=== PATIENT | male | born 1985 | race Caucasian/White ===

== ENCOUNTER 2021-05-31 01:54 | Emergency (ER) | payer SELFPAY ==
[~2021-05-31] VITALS: Ht 185.4 cm; Wt 116.0 kg
[2021-05-31] MEDS ORDERED: IBUPROFEN 600MG TABLET PO ONE (05:15)
[2021-05-31] MEDS ORDERED: NAPR-1176 MT (05:17)
[2021-05-31 05:49] VITALS: BP 126/67
== END 2021-05-31 05:52 | disposition home or self-care (01) ==
LOC: ER 02:35
DX: S09.8XXA Other specified injuries of head, initial encounter (principal); M54.5 Low back pain; R03.0 Elevated blood-pressure reading, without diagnosis of hypertension; V49.49XA Driver injured in collision with other motor vehicles in traffic accident, initial encounter; Y93.89 Activity, other specified; Y92.488 Other paved roadways as the place of occurrence of the external cause
CPT/HCPCS: 99282